=== PATIENT | female | born 1975 | race Caucasian/White ===

== ENCOUNTER → 2021-11-29 | Outpatient (CLI) | payer SELFPAY ==
--- NOTE | 2021-11-29 14:24 | US_ITS ---
Patient History: Breast mass Technique: Sonographic imaging of the breast obtained with grayscale and color images Comparison: Mammogram on the same Findings: There is normal sonographic appearance of the fibroglandular parenchyma of the breast without solid or cystic masses US/Breast Limited Unilateral IMPRESSION: Normal Report Digitally Signed by Talha Andrews on 11/29/2021 02:57 PM EDT Electronically Signed: Talha Andrews MD at 14:57 EDT ,
== END | disposition home or self-care (01) ==
LOC: RAD 09:41
PROVIDERS: PCP Family Medicine; Referring Provider Radiology Diagnostic Radiology; Visit Provider Radiology Diagnostic Radiology
DX: N63.10 Unspecified lump in the right breast, unspecified quadrant (principal); Z85.3 Personal history of malignant neoplasm of breast
CPT/HCPCS: 76642